=== PATIENT | female | born 2000 | race Caucasian/White ===

== ENCOUNTER 2019-03-23 23:08 | Emergency (ER) | payer SELFPAY ==
[~2019-03-23] VITALS: Ht 162.6 cm; Wt 52.0 kg
[2019-03-23 23:28] VITALS: BP 125/78
[2019-03-23] MEDS ORDERED: AMOX875T PO (23:51)
[2019-03-23] MEDS ORDERED: PRED50TA PO (23:51)
--- NOTE | 2019-03-23 23:51 | PHYS DOC ---
Past Medical History Past Medical History: No Pertinent History (ALY YANG APRN) Past Surgical History: No Surgical History (ALY YANG APRN) Smoking Status: Current Some Day Smoker Alcohol Use: Occasionally (ALY YANG APRN) Attending Signature I have participated in the care of this patient and I have reviewed and agree with all pertinent clinical information above including history, exam, and recommendations. (GASTON MIRANDA MD) Adult General Chief Complaint Chief Complaint: SORE THROAT HPI HPI Patient is a 19 year old female who presents to the ED today complaining of sore throat that began 5 days ago. Patient denies any fever. Denies any difficulty swallowing. (ALY YANG APRN) Review of Systems Review of Systems Constitutional: Denies fever or chills [] Eyes: Denies change in visual acuity, redness, or eye pain [] HENT: Reports sore throat. Denies nasal congestion Respiratory: Denies cough or shortness of breath [] Cardiovascular: No additional information not addressed in HPI [] GI: Denies abdominal pain, nausea, vomiting, bloody stools or diarrhea [] : Denies dysuria or hematuria [] Musculoskeletal: Denies back pain or joint pain [] Integument: Denies rash or skin lesions [] Neurologic: Denies headache, focal weakness or sensory changes [] All other systems were reviewed and found to be within normal limits, except as documented in this note. (ALY YANG APRN) Current Medications Current Medications Current Medications Medications (Trade) Dose Ordered Sig/Cody Start Time Stop Time Status Last Admin Dose Admin Amoxicillin (Amoxil) 500 mg 1X ONCE 03/24/19 00:00 03/24/19 00:01 Prednisone (Prednisone) 50 mg 1X ONCE 03/24/19 00:00 03/24/19 00:01 (GASTON MIRANDA MD) Allergies Allergies Allergies Coded Allergies Type Severity Reaction Last Updated Verified No Known Drug Allergies 03/23/19 No (GASTON MIRANDA MD) Physical Exam Physical Exam Constitutional: Well developed, well nourished, no acute distress, non-toxic appearance. [] HENT: Normocephalic, atraumatic, bilateral external ears normal, oropharynx moist, no oral exudates, nose normal. [] Midline uvula, +2 tonsils with mild erythema and exudate on the right side. Eyes: PERRLA, EOMI, conjunctiva normal, no discharge. [] Neck: Normal range of motion, no tenderness, supple, no stridor. [] Cardiovascular:Heart rate regular rhythm, no murmur [] Lungs & Thorax: Bilateral breath sounds clear to auscultation [] Abdomen: Bowel sounds normal, soft, no tenderness, no masses, no pulsatile masses. [] Skin: Warm, dry, no erythema, no rash. [] Back: No tenderness, no CVA tenderness. [] Extremities: No tenderness, no cyanosis, no clubbing, ROM intact, no edema. [] Neurologic: Alert and oriented X 3, normal motor function, normal sensory function, no focal deficits noted. [] Psychologic: Affect normal, judgement normal, mood normal. [] (ALY YANG APRN) Current Patient Data Vital Signs Vital Signs Date Time Temp Pulse Resp B/P (MAP) Pulse Ox O2 Delivery O2 Flow Rate FiO2 03/23/19 23:28 98.8 87 20 125/78 (94) 99 Room Air 98.8 (GASTON MIRANDA MD) EKG EKG [] (ALY YANG APRN) Radiology/Procedures Radiology/Procedures [] (ALY YANG APRN) Course & Med Decision Making Course & Med Decision Making Pertinent Labs and Imaging studies reviewed. (See chart for details) This is a 19-year-old female patient presenting to the ED today with with physical exam off tonsillitis. Discharged on amoxicillin and prednisone first dose given in the ED. Follow-up with ENT next week. Provided return precautions. (ALY YANG APRN) Dragon Disclaimer Dragon Disclaimer This electronic medical record was generated, in whole or in part, using a voice recognition dictation system. (ALY YANG APRN) Departure Departure Impression: Primary Impression: Acute tonsillitis Disposition: 01 HOME, SELF-CARE Condition: STABLE Referrals: NO PCP (PCP) SHAUN BAKER MD Follow-up in 1-2 weeks Patient Instructions: Tonsillitis, [id number] Additional Instructions: You have tonsillitis infection. Take the prescribed antibiotics until completed. Take prednisone as ordered. Take Tylenol/Motrin for pain or fever. Use saltwater gargles. Follow-up with the provided him to your doctor in 1-2 weeks. Scripts Prednisone (PREDNISONE) 50 Mg Tablet 1 TAB PO DAILY, #4 TAB Prov: ALY YANG APRN 03/23/19 Amoxicillin (AMOXICILLIN) 875 Mg Tablet 1 TAB PO BID, #20 TAB Prov: ALY YANG APRN 03/23/19 Problem Qualifiers Primary Impression: Acute tonsillitis Pharyngitis/tonsillitis etiology: unspecified etiology Qualified Codes: J03.90 - Acute tonsillitis, unspecified ALY YANG APRN Mar 23, 2019 23:51 GASTON MIRANDA MD Mar 24, 2019 00:00
[2019-03-24] MEDS ORDERED: AMOXICILLIN 250 MG CAPSULE. PO ONE
[2019-03-24] MEDS ORDERED: predniSONE 10 MG TABLET PO ONE
== END 2019-03-24 00:08 | disposition home or self-care (01) ==
LOC: ER 23:08
DX: J03.90 Acute tonsillitis, unspecified (principal); F17.200 Nicotine dependence, unspecified, uncomplicated
CPT/HCPCS: 87070; 87880; 99283; J7512